=== PATIENT | male | born 1990 | race American Indian/Alaskan Native ===

== ENCOUNTER 2020-03-11 11:28 | Emergency (ER) | payer SELFPAY ==
[2020-03-11 11:35] VITALS: BP 126/82
--- NOTE | 2020-03-11 12:14 | XRay Report ---
LEFT FOOT 3 VIEWS INDICATION / CLINICAL INFORMATION: Trauma, pain COMPARISON: None available. FINDINGS: BONES / JOINT(S): There is a fracture through the proximal aspect of the fifth metatarsal which is mi ldly displaced. No significant arthritis. SOFT TISSUES: No significant abnormality. ADDITIONAL FINDINGS: None. Signer Name: José Miguel Preston MD Signed: 03/11/2020 12:10 PM Workstation Name: [id number]
--- NOTE | 2020-03-11 12:46 | Emergency Department Report ---
ED Lower Extremity HPI - General Chief Complaint: Extremity Injury, Lower Stated Complaint: LEFT FOOT PAIN Time Seen by Provider: 03/11/20 12:45 Source: patient Mode of arrival: Wheelchair Limitations: No Limitations - History of Present Illness Initial Comments: 29-year-old was walking on the sidewalk missed stepped with his foot falling off a style sidewalk inversion type injury resulting in pain and swelling to the lateral aspect of his left foot pain is worse with palpation and weightbearing. He reports no numbness or tingling MD Complaint: foot injury Injury: Foot: Left Type of Injury: blunt Place: home Severity: mild, moderate Worsens With: nothing Context: direct blow Associated Symptoms: swelling - Related Data Previous Rx's Medication Instructions Recorded Last Taken Type Acetaminophen/Codeine [Tylenol 1 tab PO Q6H PRN #10 tab 03/11/20 Unknown Rx /Codeine # 3 tab] Allergies Allergy/AdvReac Type Severity Reaction Status Date / Time No Known Allergies Allergy Unverified 03/11/20 11:32 ED Review of Systems ROS: Stated complaint: LEFT FOOT PAIN Other details as noted in HPI Comment: All other systems reviewed and negative ED Past Medical Hx - Past Medical History Previous Medical History?: No - Surgical History Past Surgical History?: Yes Additional Surgical History: Right knee surgery - Social History Smoking Status: Current Every Day Smoker Substance Use Type: Marijuana - Medications Home Medications: Home Medications Medication Instructions Recorded Confirmed Last Taken Type Acetaminophen/Codeine [Tylenol 1 tab PO Q6H PRN #10 tab 03/11/20 Unknown Rx /Codeine # 3 tab] ED Physical Exam - General Limitations: No Limitations General appearance: alert, in no apparent distress - Head Head exam: Present: atraumatic, normocephalic - Eye Eye exam: Present: normal appearance, PERRL, EOMI Pupils: Present: normal accommodation - ENT ENT exam: Present: normal exam, normal orophraynx, mucous membranes moist, TM's normal bilaterally - Neck Neck exam: Present: normal inspection, full ROM - Respiratory Respiratory exam: Present: normal lung sounds bilaterally. Absent: respiratory distress, wheezes, rales - Cardiovascular Cardiovascular Exam: Present: regular rate, normal rhythm. Absent: systolic murmur, diastolic murmur, rubs, gallop - GI/Abdominal GI/Abdominal exam: Present: soft, normal bowel sounds - Rectal Rectal exam: Present: deferred - Extremities Exam Extremities exam: Present: full ROM, tenderness, normal capillary refill - Expanded Lower Extremity Exam Left Foot/Toe exam: Present: tenderness, swelling, ecchymosis, tenderness at base of 5th metatarsal. Absent: abrasion, laceration, nail avulsion - Back Exam Back exam: Present: normal inspection. Absent: CVA tenderness (R), CVA tenderness (L) - Neurological Exam Neurological exam: Present: oriented X3, CN II-XII intact - Psychiatric Psychiatric exam: Present: normal affect, normal mood - Skin Skin exam: Present: warm, dry, intact, normal color. Absent: rash ED Course Vital Signs 03/11/20 11:34 Temperature 98.5 F Pulse Rate 102 H Respiratory 16 Rate Blood Pressure 126/82 [Right] O2 Sat by Pulse 98 Oximetry - Orthopedic Splinting/Casting Injury #1 Side: left Lower Extremity Injury Location: foot Lower Extremity Immobilizer: posterior splint Other Orthopedic Equipment: crutches ED Lower Extremity MDM - Radiology Data Radiology results: report reviewed Print Report Referring Physician:ED NAYPatient Name:BRET LAURENTPatient ID:[id number] of :[id number]:MaleAccession:[id number] Date:2564-09-74Cnwthf Status:Finalized Findings [facility] [address] [place] [address] XRay Report Signed Patient: BRET LAURENT MR#: [id number] : 1990 Acct:[id number] Age/Sex: 29 / M ADM Date: 03/11/20 Loc: ED Attending Dr: Ordering Physician: RHONDA TEE MD Date of Service: 03/11/20 Procedure(s): XR foot 3+V LT Accession Number(s): [id number] cc: RHONDA TEE MD Fluoro Time In Minutes: LEFT FOOT 3 VIEWS INDICATION / CLINICAL INFORMATION: Trauma, pain COMPARISON: None available. FINDINGS: BONES / JOINT(S): There is a fracture through the proximal aspect of the fifth metatarsal which is mildly displaced. No significant arthritis. SOFT TISSUES: No significant abnormality. ADDITIONAL FINDINGS: None. Signer Name: José Miguel Preston MD Signed: 03/11/2020 12:10 PM Workstation Name: [id number] Transcribed By: SS Dictated By: José Miguel Preston MD Electronically Authenticated By: José Miguel Preston MD Signed Date/Time: 03/11/20 1210 DD/ 1209 TD/TT: - Medical Decision Making 29-year-old male status post trip resulting in a fractured fifth metatarsal plan is to follow-up with podiatry for definitive management this was reiterated to Mr. Laurent multiple times which he did express an understanding. Foot was splinted he was provided with crutches Critical care attestation.: If time is entered above; I have spent that time in minutes in the direct care of this critically ill patient, excluding procedure time. ED Disposition Clinical Impression: Metatarsal fracture Disposition: DC- TO HOME OR SELFCARE Is pt being admited?: No Does the pt Need Aspirin: No Condition: Stable Instructions: Foot Fracture in Adults (ED) Prescriptions: Acetaminophen/Codeine [Tylenol /Codeine # 3 tab] 1 tab PO Q6H PRN #10 tab PRN Reason: foot pain Referrals: PRIMARY CARE, [Primary Care Provider] - 3-5 Days LIZZETTE SALEH MD [Staff Physician] - 3-5 Days MANI TRAMMELL DPM [Staff Physician] - 3-5 Days STACIE RIVERA MD [Staff Physician] - 3-5 Days
== END 2020-03-11 14:20 | disposition home or self-care (01) ==
LOC: ED 11:28
DX: S92.352A Displaced fracture of fifth metatarsal bone, left foot, initial encounter for closed fracture (principal); F17.200 Nicotine dependence, unspecified, uncomplicated; F12.10 Cannabis abuse, uncomplicated; Z98.890 Other specified postprocedural states; Z79.899 Other long term (current) drug therapy; X50.9XXA Other and unspecified overexertion or strenuous movements or postures, initial encounter; Y93.89 Activity, other specified; Y92.89 Other specified places as the place of occurrence of the external cause; Y99.8 Other external cause status